=== PATIENT | female | born 1955 | race African-American/Black ===

== ENCOUNTER 2021-05-06 13:01 | Inpatient (IN) ==
[2021-05-06] MEDS ORDERED: ACETAMINOPHEN 325 MG TABLET PO PRN (17:16)
[2021-05-06] MEDS ORDERED: DEXTROSE 50% 25 GM/50 ML VIAL IV PRN (17:16)
[2021-05-06] MEDS ORDERED: ONDANSETRON 4 MG/2 ML VIAL IV PRN ×2 (17:16→17:53)
[2021-05-06] MEDS ORDERED: SODIUM CHLORIDE 0.9% 1,000 ML IV PRN (17:16)
[2021-05-06] MEDS ORDERED: DOCUSATE SODIUM 100 MG CAPSULE PO PRN (17:16)
[2021-05-06] MEDS ORDERED: GLUCAGON 1 MG VIAL IM PRN (17:16)
[2021-05-06] MEDS ORDERED: cefTRIAXone 1,000 MG in SODIUM CHLORIDE 0.9% 100 ML IV ONE (17:17)
[2021-05-06] MEDS ORDERED: MORPHINE 2 MG/1 ML SYRINGE IV PRN (17:27)
[2021-05-06] MEDS ORDERED: diphenhydrAMINE CAP 25 MG CAPSULE PO PRN (17:53)
[2021-05-06] MEDS ORDERED: guaiFENesin 200 MG/10 ML UDCUP PO PRN (17:53)
[2021-05-06] MEDS ORDERED: MAGNESIUM HYDROXIDE SUSP 30 ML UDCUP PO PRN (17:53)
[2021-05-06] MEDS ORDERED: LOPERAMIDE 2 MG CAPSULE PO PRN ×2 (17:53)
[2021-05-06] MEDS ORDERED: traMADol 50 MG TABLET PO PRN (17:53)
[2021-05-06] MEDS ORDERED: MYLANTA/LIDO VISC 2:1 300 ML BOTTLE SWISH/SPIT PRN (17:53)
[2021-05-06] MEDS ORDERED: MYLANTA/LIDO VISC 2:1 300 ML BOTTLE SWISH/SWAL PRN (17:53)
[2021-05-06] MEDS ORDERED: PROMETHAZINE INJ 25 MG in SODIUM CHLORIDE 0.9% 50 ML IV PRN (17:53)
[2021-05-06] MEDS ORDERED: TEMAZEPAM 7.5 MG CAPSULE PO PRN (17:53)
[2021-05-06] MEDS ORDERED: LACTULOSE 20 GM/30 ML UDCUP PO PRN (17:53)
[2021-05-06] MEDS ORDERED: ALUMINUM/MAGNES/SIMETH MAX STR 30 ML UDCUP PO PRN (17:53)
[2021-05-06] MEDS ORDERED: ALPRAZolam 0.25 MG TABLET PO PRN (17:53)
[2021-05-06 18:03] LABS: Basophils % 0.2 % (0.0-0.8); Eosinophils # 0.1 10*3/uL (0.0-0.87); Hematocrit 27.5 VOL% (35.7-47.0); Immature Granulocytes % 0.6 %; Immature Granulocytes Absolute 0.05 #; Lymphocytes # 1.5 10*3/uL (1.4-4.0); Mean Corpuscular HGB Conc 29.1 GM/DL (32-36); Mean Platelet Volume 9.4 FL (9.6-12.0); Monocytes % 8.2 % (1.7-12.7); Platelet Count 333 T/CUMM (130-400); Red Blood Count 3.16 MC/CUMM (3.8-5.5); Red Cell Distribution Width 18.6 % (9.3-17.3)
[2021-05-06] MEDS: LACTATED RINGERS 1,000 ML IV SCH (18:14)
[2021-05-06 18:31] LABS: Albumin 2.6 G/DL (3.4-5.0); Calcium 8.4 MG/DL (8.5-10.1); Osmolality,Calculated 280.1 MOS/KG (273-304); Potassium 3.8 MMOL/L (3.5-5.1)
[2021-05-06 18:37] LABS: Risk Ratio 4.19; Thyroid Stimulating Hormone 2.6 uIU/ml (0.358-3.74); VLDL Cholesterol 24.4 MG/DL
[2021-05-06 22:09] LABS: Bilirubin,Urine Negative (Negative); Blood, Urine Large mg/dL (Negative); Glucose,Urine (UA) 50 mg/dL (Negative); Hyaline Casts,Urine 175 /LPF (0-3); Ketones,Urine Negative (Negative); Mucus,Urine Moderate /LPF (Occasional); Nitrite,Urine Negative (Negative); Protein,Urine 100 MG/DL; RBC,Urine 2292 /HPF (0-4); Urine Appearance CLOUDY (Clear); Urine Color Red (Yellow); Urine Specific Gravity 1.025 (1.001-1.035); Urine Urobilinogen < 2.0 EU/DL (0.2-1.0)
[2021-05-06 23:56] LABS: Hematocrit 24.9 VOL% (35.7-47.0); Hemoglobin 7.6 GM/DL (12.0-16.0)
[2021-05-07] MEDS: LACTATED RINGERS 1,000 ML IV SCH ×2 (03:47→18:25)
[2021-05-07 04:50] LABS: Basophils % 0.3 % (0.0-0.8); Eosinophils % 0.3 % (0.00-10.9); Hematocrit 25.2 VOL% (35.7-47.0); Hemoglobin 7.6 GM/DL (12.0-16.0); Immature Granulocytes % 0.7 %; Immature Granulocytes Absolute 0.05 #; Lymphocytes # 0.8 10*3/uL (1.4-4.0); Lymphocytes % 10.7 % (21.3-54.2); Mean Corpuscular HGB Conc 30.2 GM/DL (32-36); Mean Corpuscular Volume 84.3 FL (87-102); Mean Platelet Volume 9.4 FL (9.6-12.0); Monocytes % 7.7 % (1.7-12.7); Neutrophils % 80.3 % (38.7-73.9); Platelet Count 305 T/CUMM (130-400); Red Blood Count 2.99 MC/CUMM (3.8-5.5); Red Cell Distribution Width 18.7 % (9.3-17.3); White Blood Count 7.7 T/CUMM (4-12)
[2021-05-07 05:13] LABS: Albumin 2.4 G/DL (3.4-5.0); Bilirubin,Total 2.3 MG/DL (0.2-1.0); Calcium 8.5 MG/DL (8.5-10.1); Osmolality,Calculated 277.4 MOS/KG (273-304); Potassium 3.5 MMOL/L (3.5-5.1); Total Protein 7.6 G/DL (6.4-8.2)
[2021-05-07 05:18] LABS: Calcium 8.5 MG/DL (8.5-10.1); Osmolality,Calculated 275.5 MOS/KG (273-304); Potassium 3.5 MMOL/L (3.5-5.1)
[2021-05-07] MEDS ORDERED: cefTRIAXone 1,000 MG in SODIUM CHLORIDE 0.9% 100 ML IV ONE (07:00)
[2021-05-07] MEDS ORDERED: MIDAZOLAM 2 MG/2 ML VIAL ONE (07:15)
[2021-05-07] MEDS ORDERED: fentaNYL 100 MCG/2 ML VIAL ONE ×2 (07:16→08:22)
[2021-05-07] MEDS ORDERED: GENTAMICIN 80 MG/2 ML VIAL ONE (07:31)
[2021-05-07] MEDS ORDERED: LIDOCAINE 2% 5 ML VIAL ONE ×2 (07:37→08:47)
[2021-05-07] MEDS ORDERED: propofoL 200 MG/20 ML VIAL IV ONE (07:37)
[2021-05-07] MEDS ORDERED: ONDANSETRON 4 MG/2 ML VIAL ONE ×2 (07:37→08:47)
[2021-05-07] MEDS ORDERED: SUCCINYLCHOLINE 200 MG/10 ML VIAL ONE ×2 (07:37→08:47)
[2021-05-07] MEDS ORDERED: DEXAMETHASONE 4 MG/1 ML VIAL ONE ×2 (08:03→08:47)
[2021-05-07] MEDS ORDERED: SEVOFLURANE 1 UNIT/15 MINUTE INH ONE ×4 (08:03→08:48)
[2021-05-07] MEDS ORDERED: LACTATED RINGERS 0 ML IV ONE (08:03)
[2021-05-07] MEDS ORDERED: LACTATED RINGERS 1,000 ML IV ONE (08:47)
[2021-05-07 10:07] LABS: Hematocrit 26.9 VOL% (35.7-47.0)
[2021-05-07] MEDS ORDERED: hydrALAZINE 20 MG/1 ML VIAL IV ONE (10:38)
[2021-05-07] MEDS: hydrALAZINE 20 MG/1 ML VIAL IV PRN (10:41)
[2021-05-07] MEDS: amLODIPine 5 MG TABLET PO SCH (11:29)
[2021-05-07] MEDS: PANTOPRAZOLE 40 MG TABLET PO SCH (11:29)
[2021-05-07] MEDS: cefTRIAXone 1,000 MG in SODIUM CHLORIDE 0.9% 100 ML IV SCH (18:25)
[2021-05-08 05:38] LABS: Basophils % 0.1 % (0.0-0.8); Eosinophils # 0.1 10*3/uL (0.0-0.87); Eosinophils % 1.3 % (0.00-10.9); Hematocrit 30.6 VOL% (35.7-47.0); Hemoglobin 9.3 GM/DL (12.0-16.0); Immature Granulocytes % 0.7 %; Immature Granulocytes Absolute 0.06 #; Lymphocytes # 1.5 10*3/uL (1.4-4.0); Lymphocytes % 17.6 % (21.3-54.2); Mean Corpuscular HGB Conc 30.4 GM/DL (32-36); Mean Corpuscular Volume 85.7 FL (87-102); Mean Platelet Volume 9.1 FL (9.6-12.0); Monocytes % 6.6 % (1.7-12.7); Neutrophils % 73.7 % (38.7-73.9); Platelet Count 235 T/CUMM (130-400); Red Blood Count 3.57 MC/CUMM (3.8-5.5); Red Cell Distribution Width 17.4 % (9.3-17.3); White Blood Count 8.5 T/CUMM (4-12)
[2021-05-08] MEDS: LACTATED RINGERS 1,000 ML IV SCH ×2 (05:49→14:26)
[2021-05-08 06:09] LABS: Calcium 7.9 MG/DL (8.5-10.1); Osmolality,Calculated 275.4 MOS/KG (273-304); Potassium 3.5 MMOL/L (3.5-5.1)
[2021-05-08 06:14] LABS: Albumin 2.1 G/DL (3.4-5.0); Bilirubin,Total 1.8 MG/DL (0.2-1.0); Calcium 7.9 MG/DL (8.5-10.1); Osmolality,Calculated 273.5 MOS/KG (273-304); Potassium 3.5 MMOL/L (3.5-5.1)
[2021-05-08] MEDS: amLODIPine 5 MG TABLET PO SCH (08:45)
[2021-05-08] MEDS: PANTOPRAZOLE 40 MG TABLET PO SCH (08:46)
[2021-05-08] MEDS: cefTRIAXone 1,000 MG in SODIUM CHLORIDE 0.9% 100 ML IV SCH (17:35)
[2021-05-09] MEDS: LACTATED RINGERS 1,000 ML IV SCH ×3 (03:00→22:16)
[2021-05-09 06:19] LABS: Basophils % 0.2 % (0.0-0.8); Eosinophils # 0.2 10*3/uL (0.0-0.87); Eosinophils % 1.7 % (0.00-10.9); Hemoglobin 9.3 GM/DL (12.0-16.0); Immature Granulocytes % 0.5 %; Immature Granulocytes Absolute 0.04 #; Lymphocytes # 1.4 10*3/uL (1.4-4.0); Lymphocytes % 15.8 % (21.3-54.2); Mean Corpuscular Volume 85.7 FL (87-102); Mean Platelet Volume 9.2 FL (9.6-12.0); Monocytes % 8.5 % (1.7-12.7); Neutrophils % 73.3 % (38.7-73.9); Platelet Count 199 T/CUMM (130-400); Red Cell Distribution Width 17.6 % (9.3-17.3); White Blood Count 8.6 T/CUMM (4-12)
[2021-05-09 06:40] LABS: Osmolality,Calculated 273.5 MOS/KG (273-304); Potassium 3.4 MMOL/L (3.5-5.1)
[2021-05-09] MEDS ORDERED: POTASSIUM CHLORIDE 20 MEQ TABLET PO ONE (08:15)
[2021-05-09] MEDS: amLODIPine 5 MG TABLET PO SCH (09:36)
[2021-05-09] MEDS: PANTOPRAZOLE 40 MG TABLET PO SCH (09:36)
[2021-05-09] MEDS: DEXAMETHASONE 10 MG/1 ML VIAL IV SCH ×2 (09:37→22:06)
[2021-05-09] MEDS: GRANISETRON 1 MG/1 ML VIAL IV SCH ×2 (09:38→22:09)
[2021-05-09] MEDS: CISPLATIN IV SCH (10:57)
[2021-05-09] MEDS: SODIUM CHLORIDE 0.9% IV SCH ×2 (10:57→10:58)
[2021-05-09] MEDS: IFOSFAMIDE IV SCH (10:58)
[2021-05-09] MEDS: MESNA IV SCH (10:58)
[2021-05-09] MEDS: LEVOFLOXACIN INJ 500 MG/100 ML PREMIX IV SCH (15:04)
[2021-05-10] MEDS: LACTATED RINGERS 1,000 ML IV SCH ×4 (03:22→23:49)
[2021-05-10 05:40] LABS: Hematocrit 31.8 VOL% (35.7-47.0); Hemoglobin 9.9 GM/DL (12.0-16.0); Immature Granulocytes % 0.8 %; Immature Granulocytes Absolute 0.06 #; Lymphocytes # 0.8 10*3/uL (1.4-4.0); Lymphocytes % 9.8 % (21.3-54.2); Mean Corpuscular HGB Conc 31.1 GM/DL (32-36); Mean Corpuscular Volume 85.7 FL (87-102); Mean Platelet Volume 9.4 FL (9.6-12.0); Monocytes % 1.5 % (1.7-12.7); Neutrophils % 87.9 % (38.7-73.9); Platelet Count 221 T/CUMM (130-400); Red Blood Count 3.71 MC/CUMM (3.8-5.5); Red Cell Distribution Width 17.4 % (9.3-17.3)
[2021-05-10 06:17] LABS: Calcium 8.5 MG/DL (8.5-10.1); Osmolality,Calculated 276.7 MOS/KG (273-304); Potassium 4.1 MMOL/L (3.5-5.1)
[2021-05-10] MEDS: amLODIPine 5 MG TABLET PO SCH (08:52)
[2021-05-10] MEDS: PANTOPRAZOLE 40 MG TABLET PO SCH (08:52)
[2021-05-10] MEDS: GRANISETRON 1 MG/1 ML VIAL IV SCH ×2 (10:05→20:45)
[2021-05-10] MEDS: DEXAMETHASONE 10 MG/1 ML VIAL IV SCH ×2 (10:08→20:41)
[2021-05-10] MEDS: POLYETHYLENE GLYCOL POWDER 17 GM PACK PO SCH (10:11)
[2021-05-10] MEDS: CISPLATIN IV SCH (11:35)
[2021-05-10] MEDS: SODIUM CHLORIDE 0.9% IV SCH ×2 (11:35→11:37)
[2021-05-10] MEDS: MESNA IV SCH (11:37)
[2021-05-10] MEDS: IFOSFAMIDE IV SCH (11:37)
[2021-05-10] MEDS: hydrALAZINE 20 MG/1 ML VIAL IV PRN (15:36)
[2021-05-10] MEDS: LEVOFLOXACIN INJ 500 MG/100 ML PREMIX IV SCH (15:38)
[2021-05-11 05:16] LABS: Hematocrit 31.1 VOL% (35.7-47.0); Hemoglobin 9.3 GM/DL (12.0-16.0); Immature Granulocytes % 0.7 %; Immature Granulocytes Absolute 0.07 #; Lymphocytes # 0.7 10*3/uL (1.4-4.0); Lymphocytes % 7.3 % (21.3-54.2); Mean Corpuscular HGB Conc 29.9 GM/DL (32-36); Mean Corpuscular Volume 87.1 FL (87-102); Mean Platelet Volume 9.3 FL (9.6-12.0); Monocytes % 5.1 % (1.7-12.7); Neutrophils % 86.9 % (38.7-73.9); Platelet Count 231 T/CUMM (130-400); Red Blood Count 3.57 MC/CUMM (3.8-5.5); Red Cell Distribution Width 17.8 % (9.3-17.3); White Blood Count 9.9 T/CUMM (4-12)
[2021-05-11] MEDS: POLYETHYLENE GLYCOL POWDER 17 GM PACK PO SCH (10:28)
[2021-05-11] MEDS: amLODIPine 5 MG TABLET PO SCH (10:30)
[2021-05-11] MEDS: LACTATED RINGERS 1,000 ML IV SCH ×2 (10:31→21:16)
[2021-05-11] MEDS: GRANISETRON 1 MG/1 ML VIAL IV SCH ×2 (10:32→21:17)
[2021-05-11] MEDS: PANTOPRAZOLE 40 MG TABLET PO SCH (10:35)
[2021-05-11] MEDS: DEXAMETHASONE 10 MG/1 ML VIAL IV SCH ×2 (10:40→21:16)
[2021-05-11] MEDS: SODIUM CHLORIDE 0.9% IV SCH ×2 (12:59→13:01)
[2021-05-11] MEDS: CISPLATIN IV SCH (12:59)
[2021-05-11] MEDS: MESNA IV SCH (13:01)
[2021-05-11] MEDS: IFOSFAMIDE IV SCH (13:01)
[2021-05-11] MEDS: LEVOFLOXACIN INJ 500 MG/100 ML PREMIX IV SCH (16:28)
[2021-05-12 05:46] LABS: Hematocrit 27.5 VOL% (35.7-47.0); Hemoglobin 8.6 GM/DL (12.0-16.0); Immature Granulocytes % 0.5 %; Immature Granulocytes Absolute 0.04 #; Lymphocytes # 0.7 10*3/uL (1.4-4.0); Lymphocytes % 8.6 % (21.3-54.2); Mean Corpuscular HGB Conc 31.3 GM/DL (32-36); Monocytes % 7.7 % (1.7-12.7); Neutrophils % 83.2 % (38.7-73.9); Platelet Count 212 T/CUMM (130-400); Red Blood Count 3.16 MC/CUMM (3.8-5.5); Red Cell Distribution Width 18.2 % (9.3-17.3)
[2021-05-12 06:07] LABS: Albumin 2.3 G/DL (3.4-5.0); Bilirubin,Total 0.7 MG/DL (0.20-1.00); Osmolality,Calculated 279.4 MOS/KG (273-304); Potassium 3.9 MMOL/L (3.5-5.1); Total Protein 6.3 G/DL (6.4-8.2)
[2021-05-12] MEDS: LACTATED RINGERS 1,000 ML IV SCH ×2 (07:55→20:50)
[2021-05-12] MEDS: PANTOPRAZOLE 40 MG TABLET PO SCH (09:44)
[2021-05-12] MEDS: GRANISETRON 1 MG/1 ML VIAL IV SCH ×2 (09:44→21:56)
[2021-05-12] MEDS: amLODIPine 10 MG TABLET PO SCH (09:44)
[2021-05-12] MEDS: DEXAMETHASONE 10 MG/1 ML VIAL IV SCH ×2 (09:45→21:57)
[2021-05-12] MEDS: POLYETHYLENE GLYCOL POWDER 17 GM PACK PO SCH (09:46)
[2021-05-12] MEDS: IFOSFAMIDE IV SCH (14:33)
[2021-05-12] MEDS: MESNA IV SCH (14:33)
[2021-05-12] MEDS: SODIUM CHLORIDE 0.9% IV SCH ×2 (14:33→14:40)
[2021-05-12] MEDS: LEVOFLOXACIN INJ 500 MG/100 ML PREMIX IV SCH (14:35)
[2021-05-12] MEDS: CISPLATIN IV SCH (14:40)
[2021-05-13] MEDS: LACTATED RINGERS 1,000 ML IV SCH ×2 (00:45→17:23)
[2021-05-13 05:13] LABS: Bilirubin,Total 1.1 MG/DL (0.20-1.00); Calcium 7.1 MG/DL (8.5-10.1); Osmolality,Calculated 283.1 MOS/KG (273-304); Potassium 3.4 MMOL/L (3.5-5.1); Total Protein 5.5 G/DL (6.4-8.2)
[2021-05-13 06:26] LABS: Hematocrit 26.8 VOL% (35.7-47.0); Hemoglobin 8.2 GM/DL (12.0-16.0); Immature Granulocytes % 0.4 %; Immature Granulocytes Absolute 0.03 #; Lymphocytes # 0.8 10*3/uL (1.4-4.0); Lymphocytes % 11.5 % (21.3-54.2); Mean Corpuscular HGB Conc 30.6 GM/DL (32-36); Mean Corpuscular Volume 86.7 FL (87-102); Mean Platelet Volume 9.9 FL (9.6-12.0); Neutrophils % 79.1 % (38.7-73.9); Platelet Count 225 T/CUMM (130-400); Red Blood Count 3.09 MC/CUMM (3.8-5.5); Red Cell Distribution Width 17.9 % (9.3-17.3); White Blood Count 7.2 T/CUMM (4-12)
[2021-05-13] MEDS: GRANISETRON 1 MG/1 ML VIAL IV SCH (09:25)
[2021-05-13] MEDS: POTASSIUM CHLORIDE 20 MEQ TABLET PO PRN ×3 (09:25→14:28)
[2021-05-13] MEDS: DEXAMETHASONE 10 MG/1 ML VIAL IV SCH (09:25)
[2021-05-13] MEDS: PANTOPRAZOLE 40 MG TABLET PO SCH (09:25)
[2021-05-13] MEDS: amLODIPine 10 MG TABLET PO SCH (09:25)
[2021-05-13] MEDS: POLYETHYLENE GLYCOL POWDER 17 GM PACK PO SCH (09:25)
[2021-05-13] MEDS ORDERED: SODIUM CHLORIDE 0.9% 1,000 ML IV PRN (11:44)
[2021-05-13] MEDS: LEVOFLOXACIN INJ 500 MG/100 ML PREMIX IV SCH (14:28)
[2021-05-13 15:51] VITALS: BP 150/64
== END 2021-05-13 18:15 | disposition home or self-care (01) | DRG 669 ==
LOC: N.4E 15:59 → SUATTDRO 15:59
PROVIDERS: ADMIT Internal Medicine; ATTEND Internal Medicine

== ENCOUNTER 2021-05-30 07:00 | Inpatient (IN) ==
[2021-05-31] MEDS ORDERED: chlorproMAZINE INJ 50 MG in SODIUM CHLORIDE 0.9% 100 ML IV PRN (07:14)
[2021-05-31] MEDS ORDERED: PROMETHAZINE INJ 25 MG in SODIUM CHLORIDE 0.9% 50 ML IV PRN (07:14)
[2021-05-31] MEDS ORDERED: BENZTROPINE 2 MG/2 ML AMP IV PRN (07:14)
[2021-05-31] MEDS ORDERED: MYLANTA/LIDO VISC 2:1 300 ML BOTTLE SWISH/SWAL PRN (07:14)
[2021-05-31] MEDS ORDERED: MAGNESIUM HYDROXIDE SUSP 30 ML UDCUP PO PRN (07:14)
[2021-05-31] MEDS ORDERED: guaiFENesin 200 MG/10 ML UDCUP PO PRN (07:14)
[2021-05-31] MEDS ORDERED: chlorproMAZINE 25 MG TABLET PO PRN (07:14)
[2021-05-31] MEDS ORDERED: ALUMINUM/MAGNES/SIMETH MAX STR 30 ML UDCUP PO PRN (07:14)
[2021-05-31] MEDS ORDERED: ACETAMINOPHEN 325 MG TABLET PO PRN (07:14)
[2021-05-31] MEDS ORDERED: LOPERAMIDE 2 MG CAPSULE PO PRN ×2 (07:14)
[2021-05-31] MEDS ORDERED: TEMAZEPAM 7.5 MG CAPSULE PO PRN (07:14)
[2021-05-31] MEDS ORDERED: diphenhydrAMINE CAP 25 MG CAPSULE PO PRN (07:14)
[2021-05-31] MEDS ORDERED: ALPRAZolam 0.25 MG TABLET PO PRN (07:14)
[2021-05-31] MEDS ORDERED: MYLANTA/LIDO VISC 2:1 300 ML BOTTLE SWISH/SPIT PRN (07:14)
[2021-05-31] MEDS ORDERED: LACTULOSE 20 GM/30 ML UDCUP PO PRN (07:14)
[2021-05-31] MEDS ORDERED: traMADol 50 MG TABLET PO PRN (07:14)
[2021-05-31] MEDS ORDERED: chlorproMAZINE INJ 25 MG in SODIUM CHLORIDE 0.9% 100 ML IV PRN (07:14)
[2021-05-31 08:14] LABS: Basophils % 0.3 % (0.0-0.8); Eosinophils # 0.1 10*3/uL (0.0-0.87); Eosinophils % 1.6 % (0.00-10.9); Hematocrit 38.5 VOL% (35.7-47.0); Hemoglobin 12.2 GM/DL (12.0-16.0); Immature Granulocytes % 0.3 %; Immature Granulocytes Absolute 0.02 #; Lymphocytes # 1.5 10*3/uL (1.4-4.0); Mean Corpuscular HGB Conc 31.7 GM/DL (32-36); Mean Corpuscular Volume 88.5 FL (87-102); Mean Platelet Volume 9.1 FL (9.6-12.0); Monocytes % 9.5 % (1.7-12.7); Neutrophils % 62.3 % (38.7-73.9); Platelet Count 244 T/CUMM (130-400); Red Blood Count 4.35 MC/CUMM (3.8-5.5); Red Cell Distribution Width 16.8 % (9.3-17.3); White Blood Count 5.8 T/CUMM (4-12)
[2021-05-31 08:48] LABS: Albumin 3.2 G/DL (3.4-5.0); Bilirubin,Total 0.7 MG/DL (0.20-1.00); Calcium 9.1 MG/DL (8.5-10.1); Osmolality,Calculated 278.3 MOS/KG (273-304); Total Protein 7.9 G/DL (6.4-8.2); Uric Acid 4.5 MG/DL (2.6-6.0)
[2021-05-31] MEDS: SODIUM CHLORIDE 0.9% IV SCH ×2 (12:10→14:30)
[2021-05-31] MEDS: CISPLATIN IV SCH (12:10)
[2021-05-31] MEDS: IFOSFAMIDE IV SCH (14:30)
[2021-05-31] MEDS: MESNA IV SCH (14:30)
[2021-06-01 08:33] LABS: Basophils % 0.2 % (0.0-0.8); Eosinophils # 0.1 10*3/uL (0.0-0.87); Eosinophils % 1.9 % (0.00-10.9); Hematocrit 33.6 VOL% (35.7-47.0); Hemoglobin 10.6 GM/DL (12.0-16.0); Immature Granulocytes % 0.4 %; Immature Granulocytes Absolute 0.02 #; Lymphocytes # 1.5 10*3/uL (1.4-4.0); Lymphocytes % 28.5 % (21.3-54.2); Mean Corpuscular HGB Conc 31.5 GM/DL (32-36); Mean Corpuscular Volume 88.4 FL (87-102); Mean Platelet Volume 9.2 FL (9.6-12.0); Monocytes % 11.4 % (1.7-12.7); Neutrophils % 57.6 % (38.7-73.9); Platelet Count 217 T/CUMM (130-400); Red Cell Distribution Width 17.1 % (9.3-17.3); White Blood Count 5.4 T/CUMM (4-12)
[2021-06-01 09:01] LABS: Albumin 2.7 G/DL (3.4-5.0); Bilirubin,Total 0.6 MG/DL (0.20-1.00); Calcium 8.2 MG/DL (8.5-10.1); Potassium 3.1 MMOL/L (3.5-5.1); Total Protein 6.7 G/DL (6.4-8.2)
[2021-06-01] MEDS: POTASSIUM CHLORIDE 20 MEQ TABLET PO PRN ×4 (12:01→17:13)
[2021-06-01] MEDS: ONDANSETRON 4 MG/2 ML VIAL IV PRN (13:26)
[2021-06-01] MEDS: SODIUM CHLORIDE 0.9% IV SCH ×2 (15:18→17:46)
[2021-06-01] MEDS: CISPLATIN IV SCH (15:18)
[2021-06-01] MEDS: MESNA IV SCH (17:46)
[2021-06-01] MEDS: IFOSFAMIDE IV SCH (17:46)
[2021-06-02] MEDS: CISPLATIN IV SCH (16:45)
[2021-06-02] MEDS: SODIUM CHLORIDE 0.9% IV SCH ×2 (16:45→18:45)
[2021-06-02] MEDS: IFOSFAMIDE IV SCH (18:45)
[2021-06-02] MEDS: MESNA IV SCH (18:45)
[2021-06-03] MEDS: SODIUM CHLORIDE 0.9% IV SCH ×2 (17:46→19:48)
[2021-06-03] MEDS: CISPLATIN IV SCH (17:46)
[2021-06-03] MEDS: MESNA IV SCH (19:48)
[2021-06-03] MEDS: IFOSFAMIDE IV SCH (19:48)
[2021-06-04] MEDS: ONDANSETRON 4 MG/2 ML VIAL IV PRN (11:26)
[2021-06-04 15:33] VITALS: BP 138/58
== END 2021-06-05 08:01 | disposition home or self-care (01) | DRG 847 ==
LOC: N.4E 05-31 06:57
PROVIDERS: ADMIT Specialist; ATTEND Specialist

== ENCOUNTER 2021-06-19 07:00 | Inpatient (IN) ==
[2021-06-19] MEDS ORDERED: diphenhydrAMINE CAP 25 MG CAPSULE PO PRN (08:25)
[2021-06-19] MEDS ORDERED: MAGNESIUM HYDROXIDE SUSP 30 ML UDCUP PO PRN (08:25)
[2021-06-19] MEDS ORDERED: ALUMINUM/MAGNES/SIMETH MAX STR 30 ML UDCUP PO PRN (08:25)
[2021-06-19] MEDS ORDERED: MYLANTA/LIDO VISC 2:1 300 ML BOTTLE SWISH/SWAL PRN (08:25)
[2021-06-19] MEDS ORDERED: chlorproMAZINE INJ 50 MG in SODIUM CHLORIDE 0.9% 100 ML IV PRN (08:25)
[2021-06-19] MEDS ORDERED: LACTULOSE 20 GM/30 ML UDCUP PO PRN (08:25)
[2021-06-19] MEDS ORDERED: ONDANSETRON 4 MG/2 ML VIAL IV PRN (08:25)
[2021-06-19] MEDS ORDERED: MYLANTA/LIDO VISC 2:1 300 ML BOTTLE SWISH/SPIT PRN (08:25)
[2021-06-19] MEDS ORDERED: guaiFENesin 200 MG/10 ML UDCUP PO PRN (08:25)
[2021-06-19] MEDS ORDERED: PROMETHAZINE INJ 25 MG in SODIUM CHLORIDE 0.9% 50 ML IV PRN (08:25)
[2021-06-19] MEDS ORDERED: ALPRAZolam 0.25 MG TABLET PO PRN (08:25)
[2021-06-19] MEDS ORDERED: TEMAZEPAM 7.5 MG CAPSULE PO PRN (08:25)
[2021-06-19] MEDS ORDERED: ACETAMINOPHEN 325 MG TABLET PO PRN (08:25)
[2021-06-19] MEDS ORDERED: chlorproMAZINE INJ 25 MG in SODIUM CHLORIDE 0.9% 100 ML IV PRN (08:25)
[2021-06-19] MEDS ORDERED: LOPERAMIDE 2 MG CAPSULE PO PRN ×2 (08:25)
[2021-06-19] MEDS ORDERED: traMADol 50 MG TABLET PO PRN (08:25)
[2021-06-19 10:16] LABS: Basophils % 0.3 % (0.0-0.8); Eosinophils % 0.6 % (0.00-10.9); Hematocrit 31.5 VOL% (35.7-47.0); Hemoglobin 10.2 GM/DL (12.0-16.0); Immature Granulocytes % 0.6 %; Immature Granulocytes Absolute 0.02 #; Lymphocytes # 0.9 10*3/uL (1.4-4.0); Lymphocytes % 26.7 % (21.3-54.2); Mean Corpuscular HGB Conc 32.4 GM/DL (32-36); Mean Platelet Volume 9.4 FL (9.6-12.0); Monocytes % 18.9 % (1.7-12.7); Neutrophils % 52.9 % (38.7-73.9); Platelet Count 162 T/CUMM (130-400); Red Blood Count 3.54 MC/CUMM (3.8-5.5); Red Cell Distribution Width 17.7 % (9.3-17.3); White Blood Count 3.2 T/CUMM (4-12)
[2021-06-19 10:37] LABS: Hypochromasia 1+; Lymphocytes 31 % (20-55); Microcytosis 1+; Platelet Estimate Adequate; Segmented Neutrophils 56 % (50-85); Total Cells Counted 100
[2021-06-19 10:48] LABS: Bilirubin,Total 1.9 MG/DL (0.20-1.00); Calcium 8.7 MG/DL (8.5-10.1); Osmolality,Calculated 276.4 MOS/KG (273-304); Potassium 3.2 MMOL/L (3.5-5.1); Total Protein 7.7 G/DL (6.4-8.2); Uric Acid 5.2 MG/DL (2.6-6.0)
[2021-06-19] MEDS: DEXAMETHASONE 10 MG/1 ML VIAL IV SCH (13:06)
[2021-06-19] MEDS: SODIUM CHLORIDE 0.9% IV SCH (13:19)
[2021-06-19] MEDS: CISPLATIN IV SCH (13:19)
[2021-06-19] MEDS ORDERED: SODIUM CHLORIDE 0.9% IV SCH (15:00)
[2021-06-19] MEDS ORDERED: IFOSFAMIDE IV SCH (15:00)
[2021-06-19] MEDS ORDERED: MESNA IV SCH (15:00)
[2021-06-20 05:32] LABS: Basophils % 0.3 % (0.0-0.8); Hemoglobin 9.6 GM/DL (12.0-16.0); Immature Granulocytes % 0.8 %; Immature Granulocytes Absolute 0.03 #; Mean Corpuscular Volume 90.1 FL (87-102); Mean Platelet Volume 10.4 FL (9.6-12.0); Monocytes % 13.1 % (1.7-12.7); Neutrophils % 59.8 % (38.7-73.9); Platelet Count 180 T/CUMM (130-400); Red Blood Count 3.33 MC/CUMM (3.8-5.5); Red Cell Distribution Width 18.1 % (9.3-17.3); White Blood Count 3.7 T/CUMM (4-12)
[2021-06-20 06:17] LABS: Albumin 2.7 G/DL (3.4-5.0); Bilirubin,Total 1.2 MG/DL (0.20-1.00); Calcium 8.3 MG/DL (8.5-10.1); Osmolality,Calculated 278.5 MOS/KG (273-304); Potassium 2.9 MMOL/L (3.5-5.1); Total Protein 7.2 G/DL (6.4-8.2)
[2021-06-20] MEDS: POTASSIUM CHLORIDE 20 MEQ TABLET PO PRN ×4 (08:59→15:38)
[2021-06-20] MEDS: DEXAMETHASONE 10 MG/1 ML VIAL IV SCH (13:55)
[2021-06-20] MEDS: GRANISETRON 1 MG/1 ML VIAL IV SCH (14:48)
[2021-06-20] MEDS: SODIUM CHLORIDE 0.9% IV SCH ×2 (14:51→17:21)
[2021-06-20] MEDS: CISPLATIN IV SCH (14:51)
[2021-06-20] MEDS: amLODIPine 10 MG TABLET PO SCH (15:37)
[2021-06-20] MEDS: MESNA IV SCH (17:21)
[2021-06-20] MEDS: IFOSFAMIDE IV SCH (17:21)
[2021-06-21 05:48] LABS: Hematocrit 28.9 VOL% (35.7-47.0); Hemoglobin 9.4 GM/DL (12.0-16.0); Immature Granulocytes % 0.5 %; Immature Granulocytes Absolute 0.02 #; Lymphocytes % 23.7 % (21.3-54.2); Mean Corpuscular HGB Conc 32.5 GM/DL (32-36); Mean Corpuscular Volume 90.9 FL (87-102); Mean Platelet Volume 9.6 FL (9.6-12.0); Monocytes % 12.9 % (1.7-12.7); Neutrophils % 62.9 % (38.7-73.9); Platelet Count 160 T/CUMM (130-400); Red Blood Count 3.18 MC/CUMM (3.8-5.5); Red Cell Distribution Width 18.6 % (9.3-17.3); White Blood Count 4.4 T/CUMM (4-12)
[2021-06-21 06:06] LABS: Albumin 2.6 G/DL (3.4-5.0); Bilirubin,Total 1.2 MG/DL (0.20-1.00); Osmolality,Calculated 283.1 MOS/KG (273-304); Potassium 3.6 MMOL/L (3.5-5.1); Total Protein 6.5 G/DL (6.4-8.2)
[2021-06-21] MEDS: amLODIPine 10 MG TABLET PO SCH (09:39)
[2021-06-21] MEDS: DEXAMETHASONE 10 MG/1 ML VIAL IV SCH (09:40)
[2021-06-21] MEDS: GRANISETRON 1 MG/1 ML VIAL IV SCH (10:59)
[2021-06-21] MEDS: IFOSFAMIDE IV SCH (11:00)
[2021-06-21] MEDS: MESNA IV SCH (11:00)
[2021-06-21] MEDS: SODIUM CHLORIDE 0.9% IV SCH ×2 (11:00→18:40)
[2021-06-21] MEDS: CISPLATIN IV SCH (18:40)
[2021-06-22 04:55] LABS: Basophils % 0.2 % (0.0-0.8); Hematocrit 27.5 VOL% (35.7-47.0); Hemoglobin 8.8 GM/DL (12.0-16.0); Immature Granulocytes % 0.8 %; Immature Granulocytes Absolute 0.04 #; Lymphocytes # 1.5 10*3/uL (1.4-4.0); Lymphocytes % 29.3 % (21.3-54.2); Mean Corpuscular Volume 91.1 FL (87-102); Mean Platelet Volume 10.1 FL (9.6-12.0); Monocytes % 13.9 % (1.7-12.7); Neutrophils % 55.8 % (38.7-73.9); Platelet Count 164 T/CUMM (130-400); Red Blood Count 3.02 MC/CUMM (3.8-5.5); Red Cell Distribution Width 18.8 % (9.3-17.3); White Blood Count 5.1 T/CUMM (4-12)
[2021-06-22 05:13] LABS: Albumin 2.4 G/DL (3.4-5.0); Bilirubin,Total 0.8 MG/DL (0.20-1.00); Calcium 7.8 MG/DL (8.5-10.1); Osmolality,Calculated 276.5 MOS/KG (273-304); Potassium 3.2 MMOL/L (3.5-5.1); Total Protein 6.2 G/DL (6.4-8.2)
[2021-06-22] MEDS: IFOSFAMIDE IV SCH (09:09)
[2021-06-22] MEDS: SODIUM CHLORIDE 0.9% IV SCH ×2 (09:09→16:03)
[2021-06-22] MEDS: amLODIPine 10 MG TABLET PO SCH (09:09)
[2021-06-22] MEDS: MESNA IV SCH (09:09)
[2021-06-22] MEDS: CISPLATIN IV SCH (16:03)
[2021-06-22 17:08] VITALS: BP 145/60
== END 2021-06-22 18:07 | disposition home or self-care (01) | DRG 847 ==
LOC: N.TELES 08:01
PROVIDERS: ADMIT Specialist; ATTEND Specialist